=== PATIENT | male | born 1990 | race African-American/Black ===

== ENCOUNTER 2023-01-01 19:13 | Inpatient (IN) | payer MEDICAID ==
[~2023-01-01] VITALS: Ht 167.6 cm; Wt 94.4 kg
[2023-01-01] MEDS ORDERED: LEVETIRACETAM 1000MG PREMIX 100 ML IV ONE (19:45)
[2023-01-01] MEDS ORDERED: LORAZEPAM 2MG/ML CPJ ONE (19:58)
[2023-01-01] MEDS ORDERED: LORAZEPAM 2MG/ML CPJ IV ONE (20:00)
[2023-01-01 20:34] LABS: BASOPHILS % 1.1 % (0.0-2.0); DIFFERENTIAL COMMENT 0; EOSINOPHILS % 1.4 % (0.0-5.0); HEMATOCRIT. 49.4 % (42.0-52.0); HEMOGLOBIN. 15.2 g/dL (14.0-18.0); LYMPHOCYTES % 28.9 % (20.0-50.0); MEAN CORPUSCULAR HEMOGLOBIN 27.7 pg (28.0-32.0); MEAN CORPUSCULAR HGB CONC 30.8 g/dL (31.0-37.0); MEAN PLATELET VOLUME 9.9 fl (7.4-10.4); MONOCYTES % 9.4 % (2.0-8.0); NEUTROPHILS % 59.2 % (40.0-76.0); PLATELET 232 x1000/uL (130-400); RED CELL DISTRIBUTION WIDTH 14.5 % (11.6-14.6); WHITE BLOOD COUNT 14.8 x1000/uL (4.5-11.0)
[2023-01-01 20:54] LABS: ALBUMIN 4.4 g/dL (3.4-5.0); ASPARTATE AMINOTRANSFERASE 23 IU/L (15-37); BILIRUBIN TOTAL 0.2 mg/dL (0.1-1.0); CALCIUM 9.1 mg/dL (8.5-10.1); CARBON DIOXIDE 12 mEq/L (21-32); CHLORIDE 107 mEq/L (98-107); CREATININE 1.5 mg/dL (0.6-1.3); ETHANOL BLOOD < 10 mg/dL (-10); GLUCOSE 121 mg/dL (70-105); INDEX HEMOLYSI 2 (1-3); INDEX ICTERIC 1 (1-4); INDEX LIPEMIC 1 (1-3); POTASSIUM 3.8 mEq/L (3.5-5.1); PROTEIN TOTAL 8.3 g/dL (6.0-8.3); SODIUM 140 mEq/L (136-145); UREA NITROGEN BLOOD 13 mg/dL (7-21)
[2023-01-01 21:01] LABS: CLARITY URINE CLEAR (CLEAR); COLOR URINE YELLOW (YELLOW); GLUCOSE URINE NEGATIVE (NEGATIVE); KETONES URINE TRACE (NEGATIVE); LEUKOCYTE ESTERASE URINE NEGATIVE (NEGATIVE); NITRITE URINE NEGATIVE (NEGATIVE); OCCULT BLOOD URINE 3+ (NEGATIVE); PH URINE 5.5 (4.5-8.0); PROTEIN URINE 2+ (NEGATIVE); SPECIFIC GRAVITY URINE 1.015 (1.005-1.030); UROBILINOGEN URINE 0.2 E.U./dL (0.2-1.0)
[2023-01-01 21:11] LABS: *AMPHETAMINES SCREEN URINE PRESUMTIVE POSITIVE (NEGATIVE); *BARBITURATES SCREEN URINE NEGATIVE (NEGATIVE); *BENZODIAZEPINES SCREEN URINE NEGATIVE (NEGATIVE); *COCAINE SCREEN URINE NEGATIVE (NEGATIVE); CANNABINOID URINE SCREEN PRESUMTIVE POSITIVE (NEGATIVE); ECSTASY MDMA SCREEN URINE CONF.TEST INDICATED (NEGATIVE); METHADONE URINE SCREEN NEGATIVE (NEGATIVE); OPIATES URINE SCREEN NEGATIVE (NEGATIVE); PHENCYCLIDINE URINE SCREEN PRESUMTIVE POSITIVE (NEGATIVE)
[2023-01-01 21:15] LABS: ALANINE AMINOTRANSFERASE 27 IU/L (13-61)
[2023-01-01 22:05] LABS: BACTERIA URINE 1+; SQUAMOUS EPITHELIAL CELL URINE FEW /lpf (RARE/1+)
[2023-01-01 22:07] LABS: WBC URINE 0-2 /hpf (0-2)
[2023-01-01] MEDS ORDERED: LORAZEPAM 0.5MG TABLET PO PRN (22:30)
[2023-01-01] MEDS ORDERED: ZOLPIDEM TARTRATE 5MG TABLET PO PRN (22:30)
[2023-01-01] MEDS ORDERED: ACETAMINOPHEN 325MG TABLET PO PRN ×2 (22:30)
[2023-01-01] MEDS ORDERED: IPRATROPIUM/ALBUTEROL 0.5-3(2.5)MG/3ML NEB HHN PRN (22:30)
[2023-01-01] MEDS ORDERED: DOCUSATE SODIUM 100MG CAPSULE PO PRN (22:30)
[2023-01-01] MEDS ORDERED: ONDANSETRON HCL 4MG/2ML INJ IV PRN (22:30)
[2023-01-01] MEDS ORDERED: CLONIDINE 0.1MG TABLET PO PRN (22:30)
[2023-01-01] MEDS ORDERED: GUAIFENESIN 200MG/10ML SUGAR FREE UDC PO PRN (22:30)
[2023-01-01 22:35] VITALS: BP 150/85; PULSE 78; RESP 18; TEMP 97.7
[2023-01-01] MEDS ORDERED: DEXT 5%/0.9% NACL 1,000 ML IV ONE (23:00)
[2023-01-02] VITALS: BP 135/87; PULSE 77; RESP 18; RESP 20; TEMP 98.7
[2023-01-02 04:00] VITALS: BP 127/68; PULSE 82; RESP 19; TEMP 97.6
[2023-01-02 04:39] LABS: HEMATOCRIT 44.5 % (42.0-52.0); HEMOGLOBIN 14.4 g/dL (14.0-18.0); MEAN CORPUSCULAR HEMOGLOBIN 27.2 pg (28.0-32.0); MEAN CORPUSCULAR HGB CONC 32.3 g/dL (31.0-37.0); MEAN CORPUSCULAR VOLUME 84.3 fL (80.0-94.0); PLATELET 221 x1000/uL (130-400); RED BLOOD CELL COUNT 5.28 mill/uL (4.7-6.1); RED CELL DISTRIBUTION WIDTH 14.2 % (11.6-14.6); WHITE BLOOD COUNT 14.5 x1000/uL (4.5-11.0)
[2023-01-02 04:50] LABS: CHLORIDE 104 mEq/L (98-107); INDEX HEMOLYSI 1 (1-3); INDEX ICTERIC 1 (1-4); INDEX LIPEMIC 1 (1-3); SODIUM 137 mEq/L (136-145)
[2023-01-02 04:55] LABS: INDEX HEMOLYSI 1 (1-3)
[2023-01-02 04:57] LABS: CARBON DIOXIDE 26 mEq/L (21-32); CREATININE 1.2 mg/dL (0.6-1.3); GLUCOSE 107 mg/dL (70-105); PHOSPHORUS 3.6 mg/dL (2.5-4.9); UREA NITROGEN BLOOD 11 mg/dL (7-21)
[2023-01-02 05:02] LABS: CREATINE KINASE 704 IU/L (39-308); CREATINE KINASE MB FRACTION 2.8 ng/mL (0.5-3.6); TROPONIN I HIGH SENSITIVITY 9 ng/L (<78)
[2023-01-02 05:13] LABS: T4 FREE 0.88 ng/dL (0.76-1.46); THYROID STIMULATING HORMONE 0.43 uIU/mL (0.36-3.74)
[2023-01-02 05:44] LABS: VITAMIN B12 SERUM 562 pg/mL (211-911)
[2023-01-02 07:53] VITALS: BP 123/80; PULSE 80; RESP 17; TEMP 97.9
[2023-01-02] MEDS ORDERED: LEVETIRACETAM 500MG/5ML CUP PO SCH (09:00)
[2023-01-02] MEDS ORDERED: ENOXAPARIN 30MG/0.3ML SYR SUBCUT SCH (09:00)
[2023-01-02] MEDS: LEVETIRACETAM 1,000 MG in SODIUM CHLORIDE 0.9% 100 ML IV SCH ×2 (09:00→11:37)
[2023-01-02] MEDS ORDERED: KEPP500 MT ×4 (09:19)
[2023-01-02] MEDS: FAMOTIDINE 20MG/2ML VIAL IV SCH ×2 (09:35→09:37)
[2023-01-02 09:51] VITALS: BP 123/80; PULSE 80; TEMP 97.9; O2SAT 96
[2023-01-02 12:00] VITALS: BP 118/75; PULSE 68; RESP 15; TEMP 96.7
[2023-01-02] MEDS ORDERED: LEVE1000 PO (22:39)
[2023-01-03] MEDS ORDERED: KEPP500 MT (13:25)
== END 2023-01-02 14:00 | disposition left against medical advice (07) | DRG 53 ==
LOC: ER 19:13 → 7EST 21:35 → EDBD 21:35 → EDBEDREQ 21:39
PROVIDERS: ADMIT Internal Medicine; ATTEND Internal Medicine
DX: G40.901 Epilepsy, unspecified, not intractable, with status epilepticus (principal); N17.0 Acute kidney failure with tubular necrosis; E87.20 Acidosis, unspecified; M62.82 Rhabdomyolysis; R65.10 Systemic inflammatory response syndrome (SIRS) of non-infectious origin without acute organ dysfunction; E11.65 Type 2 diabetes mellitus with hyperglycemia; Z53.29 Procedure and treatment not carried out because of patient's decision for other reasons; F17.210 Nicotine dependence, cigarettes, uncomplicated; F15.10 Other stimulant abuse, uncomplicated; F19.10 Other psychoactive substance abuse, uncomplicated; Z79.4 Long term (current) use of insulin
CPT/HCPCS: 36415; 80048; 80053; 80061; 80305; 80320; 81003; 82550; 82553; 82607; 82746; 82962; 83036; 83540; 83550; 83605; 83735; 84100; 84145; 84439; 84443; 84484; 85025; 85027; 93005; 93306; 99291; J1650; J1953; J2060; J3490; J7050; G0480

== ENCOUNTER 2023-01-30 13:55 | Emergency (ER) | payer MEDICAID, OTHER ==
[~2023-01-30] VITALS: Ht 170.2 cm; Wt 80.0 kg
[~2023-01-30 13:55] MED LIST: KEPP500 MT
[2023-01-30 14:01] VITALS: O2SAT 100
[2023-01-30] MEDS ORDERED: LEVETIRACETAM 500MG PREMIX 100 ML IV ONE (15:15)
[2023-01-30 15:24] LABS: BASOPHILS % 0.9 % (0.0-2.0); EOSINOPHILS % 1.8 % (0.0-5.0); HEMATOCRIT. 41.7 % (42.0-52.0); HEMOGLOBIN. 13.5 g/dL (14.0-18.0); LYMPHOCYTES % 24.5 % (20.0-50.0); MEAN CORPUSCULAR HEMOGLOBIN 27.2 pg (28.0-32.0); MEAN CORPUSCULAR HGB CONC 32.4 g/dL (31.0-37.0); MEAN CORPUSCULAR VOLUME 83.9 fL (80.0-94.0); MEAN PLATELET VOLUME 10.1 fl (7.4-10.4); MONOCYTES % 9.1 % (2.0-8.0); NEUTROPHILS % 63.7 % (40.0-76.0); PLATELET 188 x1000/uL (130-400); RED BLOOD CELL COUNT 4.97 mill/uL (4.7-6.1); RED CELL DISTRIBUTION WIDTH 14.2 % (11.6-14.6); WHITE BLOOD COUNT 7.1 x1000/uL (4.5-11.0)
[2023-01-30 15:26] LABS: CHLORIDE 107 mEq/L (98-107); INDEX HEMOLYSI 1 (1-3); INDEX ICTERIC 1 (1-4); INDEX LIPEMIC 1 (1-3); POTASSIUM 3.7 mEq/L (3.5-5.1); SODIUM 137 mEq/L (136-145)
[2023-01-30 15:38] LABS: ALANINE AMINOTRANSFERASE 25 IU/L (13-61); ALBUMIN 4.1 g/dL (3.4-5.0); ASPARTATE AMINOTRANSFERASE 16 IU/L (15-37); BILIRUBIN TOTAL 0.5 mg/dL (0.1-1.0); CALCIUM 9.1 mg/dL (8.5-10.1); CARBON DIOXIDE 30 mEq/L (21-32); CREATININE 1.3 mg/dL (0.6-1.3); ETHANOL BLOOD < 10 mg/dL (-10); GLUCOSE 88 mg/dL (70-105); PROTEIN TOTAL 7.6 g/dL (6.0-8.3); UREA NITROGEN BLOOD 11 mg/dL (7-21)
[2023-01-30 16:50] VITALS: BP 118/76; PULSE 72; RESP 16; TEMP 98.5
== END 2023-01-30 17:10 | disposition home or self-care (01) ==
LOC: ER 14:08
DX: R56.9 Unspecified convulsions (principal)
CPT/HCPCS: 80053; 80320; 85025; 36415; 96365; 99284; J1953; G0480

== ENCOUNTER 2023-02-03 14:26 | Emergency (ER) | payer OTHER ==
[~2023-02-03] VITALS: Ht 177.8 cm; Wt 99.0 kg
[2023-02-03 14:32] VITALS: O2SAT 97
[2023-02-03] MEDS ORDERED: LEVE1000 MT (14:48)
[2023-02-03] MEDS ORDERED: SODIUM CHLORIDE 0.9% 1,000 ML IV ONE (15:00)
[2023-02-03] MEDS ORDERED: LEVETIRACETAM 1000MG PREMIX 100 ML IV ONE (15:00)
[2023-02-03 15:32] LABS: BASOPHILS % 0.5 % (0.0-2.0); EOSINOPHILS % 1.7 % (0.0-5.0); HEMATOCRIT. 42.9 % (42.0-52.0); HEMOGLOBIN. 14.1 g/dL (14.0-18.0); LYMPHOCYTES % 20.8 % (20.0-50.0); MEAN CORPUSCULAR HEMOGLOBIN 27.2 pg (28.0-32.0); MEAN CORPUSCULAR HGB CONC 32.8 g/dL (31.0-37.0); MEAN CORPUSCULAR VOLUME 82.9 fL (80.0-94.0); MEAN PLATELET VOLUME 8.8 fl (7.4-10.4); MONOCYTES % 12.8 % (2.0-8.0); NEUTROPHILS % 64.2 % (40.0-76.0); PLATELET 204 x1000/uL (130-400); RED BLOOD CELL COUNT 5.17 mill/uL (4.7-6.1); WHITE BLOOD COUNT 8.1 x1000/uL (4.5-11.0)
[2023-02-03 15:40] LABS: CHLORIDE 102 mEq/L (98-107); INDEX HEMOLYSI 1 (1-3); INDEX ICTERIC 1 (1-4); INDEX LIPEMIC 1 (1-3); POTASSIUM 3.8 mEq/L (3.5-5.1); SODIUM 135 mEq/L (136-145)
[2023-02-03 15:47] LABS: ALANINE AMINOTRANSFERASE 21 IU/L (13-61); ASPARTATE AMINOTRANSFERASE 13 IU/L (15-37); BILIRUBIN TOTAL 1.2 mg/dL (0.1-1.0); CALCIUM 8.9 mg/dL (8.5-10.1); CARBON DIOXIDE 31 mEq/L (21-32); CREATININE 1.6 mg/dL (0.6-1.3); GLUCOSE 86 mg/dL (70-105); PROTEIN TOTAL 7.6 g/dL (6.0-8.3); UREA NITROGEN BLOOD 10 mg/dL (7-21)
[2023-02-03 17:22] VITALS: BP 116/67; PULSE 63; RESP 17; TEMP 98.3
== END 2023-02-03 18:00 | disposition home or self-care (01) ==
LOC: ER 14:29
DX: G40.909 Epilepsy, unspecified, not intractable, without status epilepticus (principal)
CPT/HCPCS: 80053; 85025; 36415; 96365; 96366; 99284; J1953; Z7610

== ENCOUNTER 2023-02-08 15:00 | Emergency (ER) | payer OTHER ==
[~2023-02-08] VITALS: Ht 170.2 cm; Wt 80.0 kg
[~2023-02-08 15:00] MED LIST changes: +LEVE1000 MT
[2023-02-08 15:07] VITALS: O2SAT 98
[2023-02-08] MEDS ORDERED: LEVETIRACETAM 500MG PREMIX 100 ML IV ONE ×2 (15:15)
[2023-02-08] MEDS ORDERED: LORAZEPAM 2MG/ML CPJ IV ONE (15:45)
[2023-02-08] MEDS ORDERED: SODIUM CHLORIDE 0.9% 1000ML BAG (SEPSIS BOLUS) IV ONE (15:45)
[2023-02-08 16:11] LABS: BASOPHILS % 0.3 % (0.0-2.0); DIFFERENTIAL COMMENT 0; EOSINOPHILS % 0.6 % (0.0-5.0); HEMOGLOBIN. 14.4 g/dL (14.0-18.0); LYMPHOCYTES % 20.4 % (20.0-50.0); MEAN CORPUSCULAR HEMOGLOBIN 27.7 pg (28.0-32.0); MEAN CORPUSCULAR HGB CONC 30.5 g/dL (31.0-37.0); MEAN CORPUSCULAR VOLUME 90.8 fL (80.0-94.0); MEAN PLATELET VOLUME 9.8 fl (7.4-10.4); MONOCYTES % 10.2 % (2.0-8.0); NEUTROPHILS % 68.5 % (40.0-76.0); PLATELET 250 x1000/uL (130-400); RED BLOOD CELL COUNT 5.18 mill/uL (4.7-6.1); RED CELL DISTRIBUTION WIDTH 14.9 % (11.6-14.6); WHITE BLOOD COUNT 23.3 x1000/uL (4.5-11.0)
[2023-02-08 16:31] LABS: CHLORIDE 97 mEq/L (98-107); INDEX HEMOLYSI 1 (1-3); INDEX ICTERIC 1 (1-4); INDEX LIPEMIC 1 (1-3); POTASSIUM 3.8 mEq/L (3.5-5.1); SODIUM 135 mEq/L (136-145)
[2023-02-08 16:42] LABS: ALANINE AMINOTRANSFERASE 24 IU/L (13-61); ALBUMIN 3.8 g/dL (3.4-5.0); ASPARTATE AMINOTRANSFERASE 17 IU/L (15-37); BILIRUBIN TOTAL 0.6 mg/dL (0.1-1.0); CALCIUM 9.6 mg/dL (8.5-10.1); CARBON DIOXIDE 10 mEq/L (21-32); CREATININE 1.5 mg/dL (0.6-1.3); GLUCOSE 172 mg/dL (70-105); NT PRO B-TYPE NATRIURETIC PEP 85 pg/mL (5-125); PROTEIN TOTAL 8.2 g/dL (6.0-8.3); TROPONIN I HIGH SENSITIVITY 5 ng/L (<78); UREA NITROGEN BLOOD 9 mg/dL (7-21)
[2023-02-08 17:47] LABS: LACTIC ACID 20.5 mmol/L (0.4-2.0)
[2023-02-08 19:51] VITALS: BP 130/79; PULSE 93; RESP 26; TEMP 98.3
[2023-02-08] MEDS ORDERED: LEVE1000 MT (20:53)
== END 2023-02-08 21:46 | disposition home or self-care (01) ==
LOC: ER 15:00
DX: R56.9 Unspecified convulsions (principal)
CPT/HCPCS: 80053; 82962; 83880; 83605; 85025; 84484; 36415; 71045; 70450; 93005; 96365; 96375; 99285; J1953; J2060; J7030; Z7610

== ENCOUNTER 2023-05-06 19:55 | Emergency (ER) | payer OTHER ==
[~2023-05-06] VITALS: Ht 172.7 cm; Wt 90.0 kg
[2023-05-06 20:03] VITALS: O2SAT 100
[2023-05-06] MEDS ORDERED: LEVETIRACETAM 1000MG PREMIX 100 ML IV ONE (20:15)
[2023-05-06 20:20] VITALS: TEMP 98.3
[2023-05-06 20:56] LABS: BASOPHILS % 0.8 % (0.0-2.0); EOSINOPHILS % 2.1 % (0.0-5.0); HEMATOCRIT. 46.1 % (42.0-52.0); HEMOGLOBIN. 14.5 g/dL (14.0-18.0); MEAN CORPUSCULAR HEMOGLOBIN 27.8 pg (28.0-32.0); MEAN CORPUSCULAR HGB CONC 31.4 g/dL (31.0-37.0); MEAN CORPUSCULAR VOLUME 88.6 fL (80.0-94.0); MEAN PLATELET VOLUME 9.1 fl (7.4-10.4); MONOCYTES % 8.1 % (2.0-8.0); PLATELET 224 x1000/uL (130-400); RED CELL DISTRIBUTION WIDTH 14.4 % (11.6-14.6); WHITE BLOOD COUNT 9.1 x1000/uL (4.5-11.0)
[2023-05-06 21:08] LABS: ALANINE AMINOTRANSFERASE 19 IU/L (10-49); ALBUMIN 4.7 g/dL (3.2-4.8); ASPARTATE AMINOTRANSFERASE 28 IU/L (<34); BILIRUBIN TOTAL 0.3 mg/dL (0.1-1.0); CARBON DIOXIDE 14 mEq/L (21-32); CHLORIDE 102 mEq/L (98-107); GLUCOSE 132 mg/dL (70-105); PROTEIN TOTAL 7.9 g/dL (6.0-8.3); SODIUM 138 mEq/L (136-145); UREA NITROGEN BLOOD 11 mg/dL (9-23)
[2023-05-06 21:10] LABS: ETHANOL BLOOD < 10 mg/dL (<10)
[2023-05-06 23:40] VITALS: BP 113/70; PULSE 91; RESP 22
== END 2023-05-06 23:40 | disposition home or self-care (01) ==
LOC: ER 19:55
DX: R56.9 Unspecified convulsions (principal); F12.10 Cannabis abuse, uncomplicated; Z87.891 Personal history of nicotine dependence
CPT/HCPCS: 80053; 80320; 85025; 36415; 96365; 99284; J1953; G0480

== ENCOUNTER 2023-05-21 04:45 | Emergency (ER) | payer OTHER ==
[~2023-05-21] VITALS: Ht 175.3 cm; Wt 87.0 kg
[2023-05-21 04:50] VITALS: O2SAT 100
[2023-05-21] MEDS ORDERED: LORAZEPAM 2MG/ML INJ IV ONE (05:30)
[2023-05-21 05:54] LABS: BASOPHILS % 0.9 % (0.0-2.0); HEMATOCRIT. 44.7 % (42.0-52.0); HEMOGLOBIN. 14.5 g/dL (14.0-18.0); MEAN CORPUSCULAR HEMOGLOBIN 27.4 pg (28.0-32.0); MEAN CORPUSCULAR HGB CONC 32.4 g/dL (31.0-37.0); MEAN CORPUSCULAR VOLUME 84.6 fL (80.0-94.0); MEAN PLATELET VOLUME 8.3 fl (7.4-10.4); MONOCYTES % 8.3 % (2.0-8.0); NEUTROPHILS % 59.8 % (40.0-76.0); PLATELET 269 x1000/uL (130-400); RED BLOOD CELL COUNT 5.29 mill/uL (4.7-6.1); RED CELL DISTRIBUTION WIDTH 14.1 % (11.6-14.6); WHITE BLOOD COUNT 7.7 x1000/uL (4.5-11.0)
[2023-05-21] MEDS ORDERED: LORAZEPAM 2MG/ML UD SYRINGE IV NR (06:00)
[2023-05-21] MEDS ORDERED: LEVETIRACETAM 500MG PREMIX 100 ML IV ONE ×2 (06:00)
[2023-05-21 06:13] LABS: ALANINE AMINOTRANSFERASE 20 IU/L (10-49); ALBUMIN 4.4 g/dL (3.2-4.8); ASPARTATE AMINOTRANSFERASE 30 IU/L (<34); BILIRUBIN TOTAL 0.3 mg/dL (0.1-1.0); CALCIUM 9.3 mg/dL (8.7-10.4); CARBON DIOXIDE 28 mEq/L (21-32); CHLORIDE 106 mEq/L (98-107); CREATININE 1.3 mg/dL (0.6-1.3); ETHANOL BLOOD < 10 mg/dL (<10); GLUCOSE 94 mg/dL (70-105); PROTEIN TOTAL 6.9 g/dL (6.0-8.3); SODIUM 139 mEq/L (136-145); UREA NITROGEN BLOOD 15 mg/dL (9-23)
[2023-05-21 07:30] VITALS: BP 135/63; PULSE 89; RESP 19; TEMP 98
[2023-05-21 11:09] LABS: CLARITY URINE CLEAR (CLEAR); COLOR URINE YELLOW (YELLOW); GLUCOSE URINE NEGATIVE (NEGATIVE); KETONES URINE NEGATIVE (NEGATIVE); LEUKOCYTE ESTERASE URINE NEGATIVE (NEGATIVE); NITRITE URINE NEGATIVE (NEGATIVE); OCCULT BLOOD URINE NEGATIVE (NEGATIVE); PROTEIN URINE NEGATIVE (NEGATIVE); SPECIFIC GRAVITY URINE 1.021 (1.005-1.030)
[2023-05-21 12:14] LABS: *AMPHETAMINES SCREEN URINE PRESUMPTIVE POSITIVE (NEGATIVE); *BARBITURATES SCREEN URINE NEGATIVE (NEGATIVE); *BENZODIAZEPINES SCREEN URINE NEGATIVE (NEGATIVE); *COCAINE SCREEN URINE NEGATIVE (NEGATIVE); CANNABINOID URINE SCREEN PRESUMPTIVE POSITIVE (NEGATIVE); ECSTASY MDMA SCREEN URINE NEGATIVE (NEGATIVE); METHADONE URINE SCREEN Neg (NEGATIVE); OPIATES URINE SCREEN NEGATIVE (NEGATIVE); PHENCYCLIDINE URINE SCREEN NEGATIVE (NEGATIVE)
== END 2023-05-21 16:48 | disposition left against medical advice (07) ==
LOC: ER 04:55
DX: G40.909 Epilepsy, unspecified, not intractable, without status epilepticus (principal); F12.10 Cannabis abuse, uncomplicated
CPT/HCPCS: 80053; 80305; 81003; 80320; 83605; 85025; 36415; 96365; 96375; 99284; J1953; J2060; Z7610 ×2; G0480

== ENCOUNTER 2023-06-23 06:38 | Emergency (ER) | payer MEDICAID, OTHER ==
[~2023-06-23] VITALS: Ht 172.7 cm; Wt 91.0 kg
[2023-06-23 06:54] VITALS: TEMP 99.2; O2SAT 100
[2023-06-23] MEDS ORDERED: LEVETIRACETAM 1000MG PREMIX 100 ML IV ONE (07:15)
[2023-06-23] MEDS ORDERED: LORAZEPAM 2MG/ML INJ IV ONE (08:30)
[2023-06-23 08:46] LABS: BASOPHILS % 0.6 % (0.0-2.0); DIFFERENTIAL COMMENT 0; EOSINOPHILS % 2.4 % (0.0-5.0); HEMOGLOBIN. 15.8 g/dL (14.0-18.0); LYMPHOCYTES % 23.2 % (20.0-50.0); MEAN CORPUSCULAR HEMOGLOBIN 27.3 pg (28.0-32.0); MONOCYTES % 11.5 % (2.0-8.0); NEUTROPHILS % 62.3 % (40.0-76.0); PLATELET 187 x1000/uL (130-400); RED CELL DISTRIBUTION WIDTH 14.2 % (11.6-14.6); WHITE BLOOD COUNT 5.9 x1000/uL (4.5-11.0)
[2023-06-23 08:55] LABS: ALANINE AMINOTRANSFERASE 32 IU/L (10-49); ALBUMIN 4.7 g/dL (3.2-4.8); ASPARTATE AMINOTRANSFERASE 40 IU/L (<34); BILIRUBIN TOTAL 0.5 mg/dL (0.1-1.0); CALCIUM 9.8 mg/dL (8.7-10.4); CARBON DIOXIDE 23 mEq/L (21-32); CHLORIDE 104 mEq/L (98-107); CREATININE 1.4 mg/dL (0.6-1.3); GLUCOSE 84 mg/dL (70-105); POTASSIUM 4.8 mEq/L (3.5-5.1); PROTEIN TOTAL 8.1 g/dL (6.0-8.3); SODIUM 135 mEq/L (136-145); UREA NITROGEN BLOOD 11 mg/dL (9-23)
[2023-06-23 08:56] LABS: ETHANOL BLOOD < 10 mg/dL (<10); TROPONIN I HIGH SENSITIVITY < 4 ng/L (3.0-53)
[2023-06-23 11:20] VITALS: BP 126/74; PULSE 82; RESP 14
== END 2023-06-23 13:45 | disposition home or self-care (01) ==
LOC: ER 06:38
DX: R56.9 Unspecified convulsions (principal); F12.10 Cannabis abuse, uncomplicated; Z91.148 Patient's other noncompliance with medication regimen for other reason
CPT/HCPCS: 80053; 80320; 85025; 84484; 36415; 96365; 96375; 99284; J1953; J2060; Z7610 ×2; G0480

== ENCOUNTER 2023-06-23 15:29 | Emergency (ER) | payer MEDICAID, OTHER ==
[~2023-06-23] VITALS: Ht 172.7 cm; Wt 80.0 kg
[2023-06-23 15:48] VITALS: O2SAT 100
[2023-06-23 19:56] VITALS: BP 137/64; PULSE 102; RESP 16; TEMP 95.1
== END 2023-06-23 20:21 | disposition left against medical advice (07) ==
LOC: ER 15:29 → EDBEDREQTM 18:54 → EDBEDREQ 18:54 → ER 20:21
DX: G40.901 Epilepsy, unspecified, not intractable, with status epilepticus (principal); F12.10 Cannabis abuse, uncomplicated
CPT/HCPCS: 82542; 99283